=== PATIENT | female | born 1970 | race African-American/Black ===

== ENCOUNTER 2019-04-12 16:29 | Emergency (ER) | payer OTHER ==
[~2019-04-12] VITALS: Ht 154.9 cm; Wt 54.5 kg
[2019-04-12] MEDS ORDERED: KETOROLAC TROMETHAMINE 30 MG/ML VIAL IM ONE (17:30)
[2019-04-12] MEDS ORDERED: MUPIROCIN CALCIUM 2% 22 GM OINTMENT TP ONE (17:30)
[2019-04-12] MEDS ORDERED: CEPHALEXIN MONOHYDRATE 500 MG CAPSULE PO ONE (17:30)
[2019-04-12 18:11] VITALS: BP 137/80
== END 2019-04-12 18:12 | disposition home or self-care (01) ==
LOC: EMS 16:31
DX: L01.01 Non-bullous impetigo (principal); F17.210 Nicotine dependence, cigarettes, uncomplicated; F12.90 Cannabis use, unspecified, uncomplicated
CPT/HCPCS: 96372; 99283; 99406; J1885

== ENCOUNTER 2021-07-29 06:14 | Emergency (ER) | payer OTHER ==
[~2021-07-29] VITALS: Ht 157.5 cm; Wt 59.0 kg
[2021-07-29] MEDS ORDERED: HYPERTENSION (06:29)
[2021-07-29 13:20] VITALS: BP 137/82
== END 2021-07-29 13:57 | disposition home or self-care (01) ==
LOC: EMS 06:15
DX: T40.601A Poisoning by unspecified narcotics, accidental (unintentional), initial encounter (principal); I10 Essential (primary) hypertension; F17.210 Nicotine dependence, cigarettes, uncomplicated; F12.90 Cannabis use, unspecified, uncomplicated; Y92.89 Other specified places as the place of occurrence of the external cause
CPT/HCPCS: 99285; Z7502

== ENCOUNTER 2022-05-19 21:23 | Emergency (ER) | payer OTHER ==
[~2022-05-19 21:23] MED LIST: HYPERTENSION
== END 2022-05-19 21:25 | disposition left against medical advice (07) ==
LOC: EMS 21:23
DX: Z53.21 Procedure and treatment not carried out due to patient leaving prior to being seen by health care provider (principal)

== ENCOUNTER 2023-03-29 14:56 | Emergency (ER) | payer OTHER ==
[~2023-03-29] VITALS: Ht 157.5 cm; Wt 59.1 kg
[2023-03-29] MEDS ORDERED: IBUPROFEN 600 MG TABLET PO ONE (15:30)
[2023-03-29] MEDS ORDERED: IBUP-1492 PO (15:55)
[2023-03-29 16:41] VITALS: BP 110/65
== END 2023-03-29 16:42 | disposition home or self-care (01) ==
LOC: EMS 14:56
DX: S66.312A Strain of extensor muscle, fascia and tendon of right middle finger at wrist and hand level, initial encounter (principal); M20.011 Mallet finger of right finger(s); I10 Essential (primary) hypertension; F17.210 Nicotine dependence, cigarettes, uncomplicated; F14.90 Cocaine use, unspecified, uncomplicated; F11.90 Opioid use, unspecified, uncomplicated; F12.90 Cannabis use, unspecified, uncomplicated; W23.0XXA Caught, crushed, jammed, or pinched between moving objects, initial encounter; Y93.89 Activity, other specified; Y92.89 Other specified places as the place of occurrence of the external cause; Y99.8 Other external cause status
CPT/HCPCS: 99283

== ENCOUNTER 2024-06-28 06:06 | Emergency (ER) | payer OTHER ==
[~2024-06-28] VITALS: Ht 154.9 cm; Wt 59.0 kg
[~2024-06-28 06:06] MED LIST changes: +AMLO5TAB66 PO; -HYPERTENSION
[2024-06-28 06:15] VITALS: BP 158/91; PULSE 105; RESP 20; TEMP 97.8; O2SAT 97
[2024-06-28] MEDS: LIDOCAINE 1% 10 ML VIAL SQ ONE (07:20)
[2024-06-28] MEDS: HYDROCODONE/ACETAMINOPHEN 5-325 MG TABLET PO ONE (07:20)
[2024-06-28] MEDS: POVIDONE-IODINE 10% 120 ML SOLUTION TP ONE (07:20)
[2024-06-28] MEDS ORDERED: SULF-261 PO (07:50)
[2024-06-28] MEDS ORDERED: HYDR-4062 PO (07:50)
[2024-06-28] MEDS ORDERED: CEPH-558 PO (07:50)
[2024-06-29] MEDS ORDERED: HYDR-4062 PO (11:31)
== END 2024-06-28 08:01 | disposition home or self-care (01) ==
LOC: EMS 06:08
DX: L02.31 Cutaneous abscess of buttock (principal); I10 Essential (primary) hypertension; F17.210 Nicotine dependence, cigarettes, uncomplicated; F14.90 Cocaine use, unspecified, uncomplicated; F12.90 Cannabis use, unspecified, uncomplicated; Z98.890 Other specified postprocedural states
CPT/HCPCS: 99283; 10060; J3490

== ENCOUNTER 2024-06-30 06:16 | Emergency (ER) | payer OTHER ==
[~2024-06-30] VITALS: Ht 154.9 cm; Wt 61.4 kg
[~2024-06-30 06:16] MED LIST changes: +CEPH-558 PO; +HYDR-4062 PO; +SULF-261 PO
[2024-06-30 06:38] VITALS: BP 169/90; PULSE 95; RESP 16; TEMP 98; O2SAT 100
== END 2024-06-30 06:41 | disposition home or self-care (01) ==
LOC: EMS 06:17
DX: Z48.00 Encounter for change or removal of nonsurgical wound dressing (principal); L02.415 Cutaneous abscess of right lower limb; I10 Essential (primary) hypertension; F17.210 Nicotine dependence, cigarettes, uncomplicated; F12.90 Cannabis use, unspecified, uncomplicated
CPT/HCPCS: 99281; Z7502